=== PATIENT | female | born 1970 | race Caucasian/White ===

== ENCOUNTER → 2016-07-08 | Outpatient (CLI) | payer BC ==
[~2016-07-08] MED LIST: ACC10 PO; LEVO-217 PO; MULT-506 PO; XNX25 PO; reviewed
--- NOTE | 2016-07-08 17:08 | MAMMOGRAPHY REPORT ---
BILATERAL DIGITAL SCREENING MAMMOGRAM TOMOSYNTHESIS WITH CAD: 07/08/2016 CLINICAL HISTORY: Routine screening. Patient has no complaints. TECHNIQUE: Breast tomosynthesis in addition to standard 2D mammography was performed. Current study was also evaluated with a Computer Aided Detection (CAD) system. COMPARISON: Comparison is made to exams dated: 07/03/2015 mammogram, 06/13/2014 mammogram, 02/06/2011 mammogram, 04/08/2012 mammogram, 06/12/2013 mammogram, and 06/28/2014 mammogram - [facility]. BREAST COMPOSITION: The tissue of both breasts is heterogeneously dense, which may obscure small ma sses. FINDINGS: There are scattered stable benign rim calcifications and round microcalcifications in the left breast. Stable asymmetry in the far posterior medial left breast on the CC view. No new suspi cious mass, architectural distortion or cluster of microcalcifications is seen. IMPRESSION: ACR BI-RADS CATEGORY 1: NEGATIVE There is no mammographic evidence of malignancy. A 1 year screening mammogram is recommended. The p atient will receive written notification of the results. Approximately 10% of breast cancers are not detected with mammography. A negative mammographic repor t should not delay biopsy if a clinically suggestive mass is present. Rajwinder العراقي M.D. ay/:07/08/2016 16:10:12 Youth Corrections Officer: Maye HATCH)(M), [facility] letter sent: Normal 1/2 BI-RADS Code: ACR BI-RADS Category 1: Negative
== END | disposition home or self-care (01) ==
LOC: C.MAMM 10:39
PROVIDERS: ATTEND Obstetrics & Gynecology
DX: Z12.31 Encounter for screening mammogram for malignant neoplasm of breast (principal)

== ENCOUNTER → 2017-07-09 | Outpatient (CLI) | payer OTHER ==
--- NOTE | 2017-07-12 15:50 | MAMMOGRAPHY REPORT ---
BILATERAL DIGITAL SCREENING MAMMOGRAM TOMOSYNTHESIS WITH CAD: 07/09/2017 CLINICAL HISTORY: Routine screening. Patient has no complaints. TECHNIQUE: Breast tomosynthesis in addition to standard 2D mammography was performed. Current study was also evaluated with a Computer Aided Detection (CAD) system. COMPARISON: Comparison is made to exams dated: 07/08/2016 mammogram, 07/03/2015 mammogram, 06/28/2014 m ammogram, 06/13/2014 mammogram, 06/12/2013 mammogram, and 04/08/2012 mammogram - [facility]. BREAST COMPOSITION: The tissue of both breasts is heterogeneously dense, which may obscure small mas ses. FINDINGS: There are possible faint grouped calcifications within the right upper outer quadrant, for which spot magnification views are recommended for further evaluation. There is questionable sangita ectural distortion within the right upper outer quadrant, for which spot compression tomosynthesis vi ews and possible ultrasound are recommended. The remainder of both breasts demonstrate no suspicious masses, calcifications, or areas of it architecture consultant ural distortion. Other bilateral asymmetries and scattered bilateral benign-appearing calcifications are not significantly changed. IMPRESSION: ACR BI-RADS CATEGORY 0: INCOMPLETE EVALUATION: NEED ADDITIONAL IMAGING EVALUATION Right upper outer quadrant calcifications and questionable architectural distortion, for which additi onal imaging evaluation is recommended. The patient will be called to schedule an appointment. Approximately 10% of breast cancers are not detected with mammography. A negative mammographic report should not delay biopsy if a clinically suggestive mass is present. Dinorah Varela M.D. /:07/09/2017 15:59:01 Html Developer: Beckie SCHOFIELD(R)(M), [facility] letter sent: Addl Imaging 0 BI-RADS Code: ACR BI-RADS Category 0: Incomplete Evaluation: Need Additional Imaging Evaluation
== END | disposition home or self-care (01) ==
LOC: C.MAMM 14:25
PROVIDERS: ATTEND Obstetrics & Gynecology
DX: Z12.31 Encounter for screening mammogram for malignant neoplasm of breast (principal); R92.1 Mammographic calcification found on diagnostic imaging of breast

== ENCOUNTER → 2017-07-28 | Outpatient (CLI) | payer OTHER ==
[~2017-07-28] MED LIST changes: +ACC/20 PO; +ALPR0.25 PO; +AMLO2.5T PO; +ATOR10TA82 PO; +LEVO50TA6 PO
--- NOTE | 2017-07-28 15:25 | MAMMOGRAPHY REPORT ---
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 TECHNIQUE: Spot magnification right CC, ML and spot compression tomosynthesis right CC and MLO views were obtained. COMPARISON: Comparison is made to exams dated: 07/09/2017 mammogram, 07/08/2016 mammogram, 07/03/2015 m ammogram, 06/28/2014 ultrasound, 06/28/2014 mammogram, and 06/13/2014 mammogram - [facility]. BREAST COMPOSITION: The tissue of the right breast is heterogeneously dense, which may obscure small masses. FINDINGS: The spot magnification views of the right breast demonstrate very faint punctate and amorp hous microcalcifications regionally distributed in the right upper outer quadrant posteriorly. The c alcifications measure approximately 3 x 4 cm in extent. When comparing back to prior available mammo grams, these right upper outer quadrant calcifications are new comparing to prior exams and are indet erminate. The spot compression tomosynthesis views of the right breast demonstrate a persistent area of distort ion in the lateral, middle one third of the breast on the spot compression CC images (slice 20/75). No definite corresponding distortion is seen on the spot compression MLO view. This finding remains indeterminate and further characterization with ultrasound was performed. Targeted ultrasound was performed throughout the right upper outer quadrant. Dense glandular tissue is identified without evidence of a discrete solid or cystic mass. No definite focal area of distort ion is appreciated. We discussed the images and the findings in detail during this diagnostic appointment and the microca lcifications and distortion are very subtle, and an infiltrative process such as lobular carcinoma ca nnot be excluded occluded. I would prefer tissue sampling via stereotactic tomosynthesis guided biop sy of the right breast distortion in the CC projection, including specimen radiography to assess for any microcalcifications present in the samples. Another option is breast MRI, although if abnormal e nhancement is identified in the upper outer quadrant biopsy would still be needed. Alternatively if there is no enhancement, the microcalcifications remain suspicious given that DCIS does not always av idly enhance on MRI. IMPRESSION: ACR BI-RADS CATEGORY 4: SUSPICIOUS, TARGETED ULTRASOUND ACR BI-RADS CATEGORY 4: SUSPICIO US 1. Right breast stereotactic tomosynthesis guided biopsy is recommended for an area of persistent ar chitectural distortion and associated punctate/amorphous microcalcification, best seen in the CC proj ection. These results and recommendations were discussed with the patient at the time of the exam. The patie nt reports she had a bad biopsy experience in the past and will consider her options, possibly obtain ing second opinion at [place]. Approximately 10% of breast cancers are not detected with mammography. A negative mammographic report should not delay biopsy if a clinically suggestive mass is present. Rajwinder العراقي M.D. ay/:07/28/2017 12:39:56 Fitness Services Manager: Beckie Slater, [facility] letter sent: Abnormal 4/5 BI-RADS Code: ACR BI-RADS Category 4: Suspicious Ultrasound BI-RADS: ACR BI-RADS Category 4: Suspici ous
== END | disposition home or self-care (01) ==
LOC: C.MAMM 11:18
PROVIDERS: ATTEND Obstetrics & Gynecology
DX: R92.8 Other abnormal and inconclusive findings on diagnostic imaging of breast (principal); R92.0 Mammographic microcalcification found on diagnostic imaging of breast

== ENCOUNTER 2017-09-17 16:36 | Emergency (ER) | payer OTHER ==
[~2017-09-17] VITALS: Ht 157.5 cm; Wt 72.5 kg
[~2017-09-17 16:36] MED LIST changes: -ACC/20 PO; -ALPR0.25 PO; -AMLO2.5T PO; -ATOR10TA82 PO; -LEVO50TA6 PO
[2017-09-17 16:50] VITALS: TEMP 36.7; Ht 157.5 cm; Wt 72.5 kg
[2017-09-17] MEDS ORDERED: SODIUM CHLORIDE 0.9% 1000ML 1,000 ML IV STA (17:28)
[2017-09-17] MEDS ORDERED: ATOR10TA82 PO (17:38)
[2017-09-17] MEDS ORDERED: AMLO2.5T PO (17:38)
[2017-09-17] MEDS ORDERED: ALPR0.25 PO (17:38)
[2017-09-17] MEDS ORDERED: LEVO50TA6 PO (17:38)
[2017-09-17] MEDS ORDERED: ACC/20 PO (17:38)
[2017-09-17] MEDS ORDERED: OPTIRAY 320 IV PRN (17:45)
--- NOTE | 2017-09-17 17:52 | DIAGNOSTIC IMAGING REPORT ---
CHEST ONE VIEW PORTABLE CLINICAL HISTORY: Atypical chest pain COMPARISON STUDY: No previous studies for comparison. FINDINGS: The cardiac and mediastinal contours are normal. There is no evidence of focal pulmonary consolidation. There is no evidence of failure. No pleural effusions are visualized.[ IMPRESSION: No active disease in the chest. Electronically signed by: Casper Cardoso M.D. 09/17/2017 5:50 PM Dictated Date/Time: 09/17/2017 5:50 PM
[2017-09-17 18:06] LABS: BASO % 0.5 %; BASO ABS # 0.03 K/uL (0-0.2); EOS % 2.5 %; EOS ABS # 0.16 K/uL (0-0.5); HEMATOCRIT 39.7 % (37-47); HEMOGLOBIN 13.9 g/dL (12.0-16.0); LYMPH % 29.9 %; LYMPH ABS # 1.94 K/uL (1.2-3.4); MEAN CELL VOLUME 88.6 fL (80-100); MEAN PLATELET VOLUME 10.2 fL (7.4-10.4); MONO % 10.6 %; MONO ABS # 0.69 K/uL (0.11-0.59); NEUT % 56.5 %; NEUT ABS # 3.66 K/uL (1.4-6.5); PLATELET COUNT 240 K/uL (130-400); RED CELL DISTRIBUTION WIDTH CV 12.4 % (11.5-14.5); WHITE BLOOD COUNT 6.48 K/uL (4.8-10.8)
[2017-09-17 18:22] LABS: ALBUMIN 4.5 gm/dl (3.4-5.0); ALT/SGPT 50 U/L (12-78); BLOOD UREA NITROGEN 20 mg/dl (7-18); CALCIUM 9.6 mg/dl (8.5-10.1); CARBON DIOXIDE 26 mmol/L (21-32); CREATININE 0.82 mg/dl (0.60-1.20); GLUCOSE 103 mg/dl (70-99); LIPASE 394 U/L (73-393); POTASSIUM 3.9 mmol/L (3.5-5.1); SODIUM 139 mmol/L (136-145)
[2017-09-17 18:27] LABS: ALKALINE PHOSPHATASE 82 U/L (45-117); AST/SGOT 28 U/L (15-37); CKMB 2.4 ng/ml (0.5-3.6); TOTAL PROTEIN 7.8 gm/dl (6.4-8.2)
--- NOTE | 2017-09-17 18:57 | DIAGNOSTIC IMAGING REPORT ---
CT ANGIOGRAM OF THE CHEST CLINICAL HISTORY: Atypical chest and throat pain. COMPARISON STUDY: Chest x-ray dated 09/17/2017 TECHNIQUE: Following the IV administration of 92 mL of Optiray-320, CT angiogram of the thorax was performed from the thoracic inlet to the lung bases utilizing the pulmonary embolus protocol. Images are reviewed in the axial, sagittal, and coronal planes. IV contrast was administered without complication. MIP imaging was performed. A dose lowering technique was utilized adhering to the principles of ALARA. CT DOSE: 348.17 mGy.cm FINDINGS: No pathologically enlarged axillary mediastinal or hilar lymph nodes were visualized. There was no evidence of thoracic aortic dilatation. There were no pulmonary artery filling defects to indicate acute pulmonary embolism. No pleural effusions are visualized. There are mild dependent atelectatic changes. There is no focal pulmonary consolidation. IMPRESSION: 1. No evidence of acute pulmonary embolism 2. No evidence of focal pulmonary consolidation Electronically signed by: Casper Cardoso M.D. 09/17/2017 6:55 PM Dictated Date/Time: 09/17/2017 6:53 PM
[2017-09-17 20:37] VITALS: BP 131/86; PULSE 68; O2SAT 96
--- NOTE | 2017-09-18 14:12 | EMERGENCY ROOM VISIT NOTE ---
ED Visit Note First contact with patient: 16:59 Chief Complaint: Throat pain. History of Present Illness: Ms. Guzman is a 47 year-old white female who ambulates into the ED complaining of lower anterior throat and upper chest pain. Historically patient reports she has no history of coronary artery disease. She does have a history of hypertension and reports her mother has significant coronary artery disease with her first cardiac ED and at age 50. Patient reports 2 days ago she was chewing gum and then accidentally swallowed her gum. A few hours after this occurred she started having mild burning, scratchy sensation and minimal pressure sensations in the area just inferior to the larynx extending to the upper half of the sternum. Since that time her discomfort has been intermittent. Currently she rates this discomfort 09/21. She denies radiation of the discomfort. She has not identified any aggravating or alleviating factors related to the discomfort. She has not taken any medications for this discomfort prior to arrival at the hospital a onset of pain that started approximately hours ago. She has had no associated symptoms with her discomfort including fevers, chills, sweats, skin eruptions, difficulty swallowing, voice changes, difficulty breathing, shortness of breath , nausea, vomiting. She contacted her PCP today and he encouraged her to come to the emergency department for possible aspiration of the gum. Review of Systems: As noted above in history of present illness. All body systems were reviewed and found to be negative as noted above. Past Medical History: As previously noted, hypothyroidism, dyslipidemia. Current Medications: Levothyroxine, Accupril, Norvasc, Zantac, Lipitor. Allergies to Medications: Patient denies. Social History: Patient is currently employed; she feels safe in her home environment; she denies tobacco use. Physical Examination: Vital Signs: Date Time Temp Pulse Resp B/P (MAP) Pulse Ox O2 Delivery O2 Flow Rate FiO2 09/17/17 20:37 68 18 131/86 96 Room Air 09/17/17 19:24 66 18 115/80 98 Room Air 09/17/17 18:32 74 09/17/17 18:14 67 16 122/80 98 Room Air 09/17/17 16:57 100 Room Air 09/17/17 16:50 36.7 70 18 129/83 99 Room Air GENERAL: 47-year-old female in minimal distress due to symptoms, nontoxic- appearing, afebrile and hemodynamically stable. NEUROLOGICAL: Awake, alert and oriented to person, place and time. Answering questions appropriately and following commands. Normal gait. Good hand eye coordination. SKIN: Warm, dry and pink. No soft tissue eruptions or trauma noted. HEENT: Atraumatic and normocephalic. PERRLA. Sclera white and conjunctiva pink. Oral cavity moist and pink. Pharynx is nonerythematous or edematous. Speech normal. No lymphadenopathy. Trachea midline. No jugular venous distention. No carotid bruits. No auditory or ausculatory stridor. BACK: No tenderness over the bony spine. No CVA tenderness. THORAX: Lungs sounds are clear to auscultation and equal bilaterally with symmetrical chest wall. No wheezing, rales or rhonchi. No crepitus, tenderness , subcutaneous air or deformities noted. HEART: Regular rate and rhythm. No gallops, rubs or murmurs are appreciated. No lifts, heaves or thrills. PMI is not displaced. ABDOMEN: Flat, soft and nontender. Positive bowel sounds in all quadrants. No guarding, rigidity or organomegaly. EXTREMITIES: Moves all extremities well on command and with purpose. All distal neurovascular statuses are intact and equal bilaterally. No dependent edema or calf tenderness/cords. ED Course: Patient is assessed as noted above. Patient's medication list was reviewed. Laboratory Testing: Test 09/17/17 17:40 09/17/17 18:44 09/17/17 20:37 Range/Units White Blood Count 6.48 4.8-10.8 K/uL Red Blood Count 4.48 4.2-5.4 M/uL Hemoglobin 13.9 12.0-16.0 g/dL Hematocrit 39.7 37-47 % Mean Corpuscular Volume 88.6 80-100 fL Mean Corpuscular Hemoglobin 31.0 25-34 pg Mean Corpuscular Hemoglobin Concent 35.0 32-36 g/dl Platelet Count 240 130-400 K/uL Mean Platelet Volume 10.2 7.4-10.4 fL Neutrophils (%) (Auto) 56.5 % Lymphocytes (%) (Auto) 29.9 % Monocytes (%) (Auto) 10.6 % Eosinophils (%) (Auto) 2.5 % Basophils (%) (Auto) 0.5 % Neutrophils # (Auto) 3.66 1.4-6.5 K/uL Lymphocytes # (Auto) 1.94 1.2-3.4 K/uL Monocytes # (Auto) 0.69 0.11-0.59 K/uL Eosinophils # (Auto) 0.16 0-0.5 K/uL Basophils # (Auto) 0.03 0-0.2 K/uL RDW Standard Deviation 40.0 36.4-46.3 fL RDW Coefficient of Variation 12.4 11.5-14.5 % Immature Granulocyte % (Auto) 0.0 % Immature Granulocyte # (Auto) 0.00 0.00-0.02 K/uL Sodium Level 139 136-145 mmol/L Potassium Level 3.9 3.5-5.1 mmol/L Chloride Level 105 98-107 mmol/L Carbon Dioxide Level 26 21-32 mmol/L Anion Gap 8.0 3-11 mmol/L Blood Urea Nitrogen 20 7-18 mg/dl Creatinine 0.82 0.60-1.20 mg/dl Est Creatinine Clear Calc Drug Dose 77.4 ml/min Estimated GFR () 97.4 Estimated GFR (Non- 84.0 BUN/Creatinine Ratio 24.3 10-20 Random Glucose 103 70-99 mg/dl Calcium Level 9.6 8.5-10.1 mg/dl Total Bilirubin 0.3 0.2-1 mg/dl Direct Bilirubin < 0.1 0-0.2 mg/dl Aspartate Amino Transf (AST/SGOT) 28 15-37 U/L Alanine Aminotransferase (ALT/SGPT) 50 12-78 U/L Alkaline Phosphatase 82 45-117 U/L Total Creatine Kinase 113 26-192 U/L Creatine Kinase MB 2.4 0.5-3.6 ng/ml Creatine Kinase MB Ratio 2.1 0-3.0 Total Protein 7.8 6.4-8.2 gm/dl Albumin 4.5 3.4-5.0 gm/dl Lipase 394 73-393 U/L Bedside Troponin I < 0.030 < 0.030 0-0.045 ng/ml Chest X-Rays: Was read by myself and the radiologist showing no acute infiltrates, effusions or pneumothorax. Chest CTA: Was reviewed by myself and read by the radiologist showing no acute pulmonary embolism, no pathological enlargement of axillary, mediastinal or hilar lymph nodes, no evidence of thoracic aortic dilatation, no evidence of pleural effusions, and minimally dependent atelectasis with no focal pulmonary consolidation. EKG #1: 1810. Was read by myself and shows normal sinus rhythm with a ventricular rate of 70 bpm. Normal axis, intervals and complexes. No acute ST changes indicating ischemia, injury or infarction. This was compared to a previous from October 1997 and no acute changes were noted. EKG #2: 2035. Was read by myself and shows normal sinus rhythm with a ventricular rate of 60 bpm. Normal axis, intervals and complexes. No acute ST changes indicating ischemia, injury or infarction. This was compared to previous and minimal voltage changes were noted. Patient was hydrated with normal saline. Patient was assessed multiple times during her stay in the emergency department. Patient case was reviewed with Dr. Brody and Dr. Morales; we agreed on diagnostic approach, treatment, disposition and plan. Patient's case was consulted with case management and Dr. Perez, hospitalist. It was felt that if a repeat troponin and EKG were performed and normal patient could follow-up as an outpatient for cardiac evaluation. Patient repeat testing was normal. Patient was educated about today's findings and instructed on her treatment plan ; she verbalizes understanding and agreement with this plan. Clinical Impression: Chest pain. Decision-Making: Initially my differential diagnosis I considered aspiration of foreign body, acute coronary syndrome, pneumothorax, pneumonia, pulmonary embolism and other causes. Disposition: Patient discharged home and subjectively reported she was feeling better and rated her discomfort 2/10. Plan: Patient was encouraged to continue her current medications as prescribed. Patient was encouraged to use 650 mg of acetaminophen every 6 hours as needed for throat/chest discomfort. Patient was encouraged to contact her PCP tomorrow morning and informed her of her ED visit and request follow-up care and treatment and possible referrals to cardiology and/or pulmonology. Patient was encouraged to return to the ED for worsening discomfort, shortness of breath, difficulty breathing, vomiting or any new/concerning symptoms.
== END 2017-09-17 21:02 | disposition home or self-care (01) ==
LOC: C.EDB 16:38 → C.EDD 21:02
DX: R07.9 Chest pain, unspecified (principal); E03.9 Hypothyroidism, unspecified; E78.5 Hyperlipidemia, unspecified